=== PATIENT | male | born 1945 | race Caucasian/White ===

== ENCOUNTER 2017-06-14 08:00 | Outpatient (CLI) | payer MEDICARE, BC | END 2017-06-14 08:01 | disposition home or self-care (01) | LOC: BICMRI 08:00 | PROVIDERS: ATTEND Orthopaedic Surgery | DX: S83.231A Complex tear of medial meniscus, current injury, right knee, initial encounter (principal); M25.562 Pain in left knee | CPT/HCPCS: 70210 ==